=== PATIENT | male | born 1950 | race Caucasian/White ===

== ENCOUNTER → 2019-02-15 06:31 | Outpatient (CLI) | payer MEDICARE, SELFPAY ==
--- NOTE | 2019-02-15 06:35 | MRI_ITS ---
STUDY: MRI BRAIN WITHOUT CONTRAST (ATTENTION INTERNAL AUDITORY CANALS - I.A.C.'s) REASON FOR EXAM: Male, 68 years old. Increased hearing loss left ear. TECHNIQUE: Standardized multiplanar fat and water weighted pulse sequences were obtained. COMPARISON: No contrast administered. No prior exams for comparison. FINDINGS: Normal bilateral internal auditory canals. There is no demonstrated intracanalicular or cisternal vestibular schwannoma (acoustic neuroma) on this unenhanced examination. Normal visualized bilateral cochlea, vestibules and semicircular canals. Normal bilateral mastoid air cells. Normal midbrain, luis and medulla. Normal cerebellum. Normal basal cisterns. Normal size of the ventricles and extra-axial spaces for the patient's age. Normal white matter tracts of the supratentorial brain. Normal bilateral basal ganglia. Normal thalami. There is no extra-axial fluid accumulation. Normal flow voids within the major intracranial circulation suggesting patency by spin echo criteria. Normal sella turcica, pituitary gland, infundibular stalk, optic chiasm and hypothalamus. Normal tectal plate and pineal gland. No demonstrated orbital abnormality, within the constraints of a routine brain study. Normal visualized paranasal sinuses. Normal calvarium and skull base. Normal visualized soft tissue structures. There is a nonspecific, 1 cm, ovoid T2 isointense and FLAIR hyperintense focus in the left paramedian adenoidal soft tissues seen best on sequence 3, image 14 and sequence 5, image 5. This may represent a prominent focus of lymphatic tissue. Small mass cannot be excluded. Recommend direct visualization. MRI/Brain without Contrast IMPRESSION: Normal unenhanced MRI of the bilateral internal auditory canals (I.A.C's). 1 cm focus in the left paramedian adenoidal soft tissues of the nasopharynx. Again this may represent a prominent focus of lymphatic tissue. Small early aggressive mass cannot be excluded. Recommend direct visualization is initial further evaluation. Electronically Signed: Parveen Zhang MD at 8:30 EDT , Service support ,
[2019-02-15 07:00] LABS: CREATININE FINGERSTICK 1.6 mg/dL (0.70-1.30)
== END ==
PROVIDERS: Family Provider Family Medicine; PCP Family Medicine; Referring Provider Otolaryngology; Visit Provider Otolaryngology
DX: H91.90 Unspecified hearing loss, unspecified ear (principal)
CPT/HCPCS: 70551